=== PATIENT | female | born 1995 | race Caucasian/White ===

== ENCOUNTER 2016-10-18 13:48 | Emergency (ER) | payer BC, OTHER ==
[~2016-10-18] VITALS: Ht 160 cm; Wt 95.2 kg
[2016-10-18 13:49] VITALS: Ht 160 cm; Wt 95.2 kg
[2016-10-18] MEDS ORDERED: OMEP20TA PO (15:03)
[2016-10-18 15:19] LABS: URINE APPEARANCE CLOUDY (CLEAR); URINE COLOR DK YELLOW; URINE EPITHELIAL CELL AUTO >30 /lpf (0-5); URINE NITRITE NEG (NEG); URINE PH 5.5 (4.5-7.5); URINE SPECIFIC GRAVITY 1.027 (1.000-1.030); UROBILINOGEN NEG (NEG); ZZUR CULT IF INDIC CLEAN CATCH YES
--- NOTE | 2016-10-18 15:22 | EMERGENCY ROOM VISIT NOTE ---
History Report prepared by Beatrice: Sherice Vega Under the Supervision of: Dr. Aisha Aguillon M.D. First contact with patient: 14:07 Chief Complaint: MENTAL HEALTH EVALUATION Stated Complaint: PSYCHIATRIC PROBLEMS History of Present Illness The patient is a 21 year old female who presents to the Emergency Room for a mental health evaluation. Per family the patient had mental health issues about 1.5-2 years ago. Her mother had a brain aneurysm and was at [facility]. The patient worked in [employer] at [place] at that time. She became very aware of people talking and thought that everyone was talking about her even though they were not. She became very concerned about this. Sister states that a few months after her mother's aneurysm the patient was sent to clean the same room that she had been in. That made her anxiety and paranoia worse. The patient had a "breakdown" after that incident. She was admitted to [facility] for 9 weeks about 1.5 years ago. Family states that she had been doing well since she was discharged. She was taking her medications and following-up with a psychiatrist. About 2-3 months ago she stopped taking the medications and going to see her psychiatrist because she was doing well. Family states that the patient was doing well and was not having any further issues until 4 days ago. Four days ago she watched "13 Reasons Why" with her fiance. Father states that the show scared her. The patient states that she started thinking that she had done something to make someone want to harm themselves, and that made her want to harm herself. She reports that over the past 4 days she has been thinking about hurting herself. The patient states that she is also "worrying again." She is concerned that everyone is going to leave her and not come back. She states that her family has never left her alone before. She also constantly thinks that people are talking about her when they are on the telephone or when doctors in the hospital are being paged overhead. She thinks that all of the pages are in regards to her. Father states that the patient recently started a new job at [employer] and has been working 16 hour days. She has not been sleeping much over the past 4 days. He states that she has been up every hour. She tried taking Trazodone to help her sleep, but it did not work. The patient denies any chance of . She is not currently taking any OCP. Source of History: patient, parent (father), family (sister) Onset: [employer] Position: other (mental health) Quality: other (anxiety) Timing: worsening Modifying Factors (Worsening): other (watching "13 Reasons Why") Note: Pt denies chance of . Review of Systems See HPI for pertinent positives & negatives. A total of 10 systems reviewed and were otherwise negative. Past Medical & Surgical Medical Problems: (1) Anxiety Family History FH: brain aneurysm Social History Smoking Status: Former Smoker Marital Status: in relationship Housing Status: lives with family Occupation Status: employed Current/Historical Medications Scheduled Omeprazole (Omeprazole), 1 TAB PO DAILY Allergies Coded Allergies: Adhesives (Unverified Allergy, Mild, rash, 10/18/16) Physical Exam Vital Signs Date Time Temp Pulse Resp B/P (MAP) Pulse Ox O2 Delivery O2 Flow Rate FiO2 10/18/16 21:16 95 18 126/83 97 Room Air 10/18/16 18:12 93 18 128/88 97 10/18/16 16:21 78 19 99/78 95 Room Air 10/18/16 13:49 36.9 93 16 143/94 100 Physical Exam Vital signs reviewed. General: Anxious-appearing young female, in no significant distress. HEENT: No scleral icterus, PERRLA, neck supple. Atraumatic. Cardiovascular: Regular rate and rhythm, no extra sounds. Pulmonary: Clear to auscultation bilaterally, normal work of breathing. Abdomen: Soft, nontender, nondistended, positive bowel sounds. Musculoskeletal: Atraumatic, no peripheral edema. Neurologic: Patient awake alert and oriented x 3, full strength in all 4 extremities. Cranial nerves 2 through 12 grossly intact. Skin: Warm, dry, no rash Psych: Passive SI, negative HI, positive paranoid thinking. Medical Decision & Procedures ER Provider Diagnostic Interpretation: Radiology results as stated below per my review and radiologist interpretation: HEAD WITHOUT CONTRAST (CT) CT DOSE: 537.48 mGy.cm HISTORY: Trauma. Mental status change. ARAUJO, fall TECHNIQUE: Multiaxial CT images of the head were performed without the use of intravenous contrast. A dose lowering technique was utilized adhering to the principles of ALARA. Comparison: None. Findings: The paranasal sinuses and mastoid air cells are clear. The calvarium and skull base are intact. The ventricles and sulci are within normal limits. There is no mass, hematoma, midline shift, or acute infarct. Impression: No acute intracranial abnormality. The above report was generated using voice recognition software. It may contain grammatical, syntax or spelling errors. Electronically signed by: Papo Cao M.D. 10/18/2016 7:14 PM Dictated Date/Time: 10/18/2016 7:13 PM Laboratory Results 10/18/16 15:05 Red Blood Count 4.39, Mean Corpuscular Volume 87.2, Mean Corpuscular Hemoglobin 31.2, Mean Corpuscular Hemoglobin Concent 35.8, Mean Platelet Volume 10.4, Neutrophils (%) (Auto) 74.0, Lymphocytes (%) (Auto) 19.6, Monocytes (%) (Auto) 5.9, Eosinophils (%) (Auto) 0.1, Basophils (%) (Auto) 0.2, Neutrophils # (Auto) 7.74, Lymphocytes # (Auto) 2.05, Monocytes # (Auto) 0.62, Eosinophils # (Auto) 0.01, Basophils # (Auto) 0.02 10/18/16 15:05 Test 10/18/16 14:17 10/18/16 15:05 10/18/16 16:40 Urine Color DK YELLOW Urine Appearance CLOUDY (CLEAR) Urine pH 5.5 (4.5-7.5) Urine Specific [place] 1.027 (1.000-1.030) Urine Protein TRACE (NEG) Urine Glucose (UA) NEG (NEG) Urine Ketones 4+ (NEG) Urine Occult Blood TRACE (NEG) Urine Nitrite NEG (NEG) Urine Bilirubin NEG (NEG) Urine Urobilinogen NEG (NEG) Urine Leukocyte Esterase NEG (NEG) Urine WBC (Auto) 1-5 /hpf (0-5) Urine RBC (Auto) 0-4 /hpf (0-4) Urine Hyaline Casts (Auto) 5-10 /lpf (0-5) Urine Epithelial Cells (Auto) >30 /lpf (0-5) Urine Bacteria (Auto) 3+ (NEG) Urine Test NEG (NEG) White Blood Count 10.46 K/uL (4.8-10.8) Red Blood Count 4.39 M/uL (4.2-5.4) Hemoglobin 13.7 g/dL (12.0-16.0) Hematocrit 38.3 % (37-47) Mean Corpuscular Volume 87.2 fL (80-100) Mean Corpuscular Hemoglobin 31.2 pg (25-34) Mean Corpuscular Hemoglobin Concent 35.8 g/dl (32-36) Platelet Count 303 K/uL (130-400) Mean Platelet Volume 10.4 fL (7.4-10.4) Neutrophils (%) (Auto) 74.0 % Lymphocytes (%) (Auto) 19.6 % Monocytes (%) (Auto) 5.9 % Eosinophils (%) (Auto) 0.1 % Basophils (%) (Auto) 0.2 % Neutrophils # (Auto) 7.74 K/uL (1.4-6.5) Lymphocytes # (Auto) 2.05 K/uL (1.2-3.4) Monocytes # (Auto) 0.62 K/uL (0.11-0.59) Eosinophils # (Auto) 0.01 K/uL (0-0.5) Basophils # (Auto) 0.02 K/uL (0-0.2) RDW Standard Deviation 41.0 fL (36.4-46.3) RDW Coefficient of Variation 12.7 % (11.5-14.5) Immature Granulocyte % (Auto) 0.2 % Immature Granulocyte # (Auto) 0.02 K/uL (0.00-0.02) Anion Gap 12.0 mmol/L (3-11) Est Creatinine Clear Calc Drug Dose 126.3 ml/min Estimated GFR () 128.1 Estimated GFR (Non- 110.6 BUN/Creatinine Ratio 10.9 (10-20) Calcium Level 9.5 mg/dl (8.5-10.1) Total Bilirubin 0.9 mg/dl (0.2-1) Direct Bilirubin 0.2 mg/dl (0-0.2) Aspartate Amino Transf (AST/SGOT) 15 U/L (15-37) Alanine Aminotransferase (ALT/SGPT) 30 U/L (12-78) Alkaline Phosphatase 101 U/L (45-117) Total Protein 8.3 gm/dl (6.4-8.2) Albumin 3.9 gm/dl (3.4-5.0) Thyroid Stimulating Hormone (TSH) 1.170 uIu/ml (0.300-4.500) Salicylates Level < 1.7 mg/dl (2.8-20) Acetaminophen Level < 2 ug/ml (10-30) Ethyl Alcohol mg/dL < 3.0 mg/dl (0-3) Urine Opiates Screen NEG (NEG) Urine Methadone, Qualitative NEG (NEG) Urine Barbiturates NEG (NEG) Urine Phencyclidine (PCP) Level NEG (NEG) Ur Amphetamine/Methamphetamine NEG (NEG) MDMA (Ecstasy) Screen NEG (NEG) Urine Benzodiazepines Screen NEG (NEG) Urine Cocaine Metabolite NEG (NEG) Urine Marijuana (THC) NEG (NEG) Laboratory results per my review. Medications Administered Medications (Trade) Dose Ordered Sig/Lee Route Start Time Stop Time Status Last Admin Dose Admin Hydroxyzine HCl (Vistaril Tab) 25 mg NOW STAT PO 10/18/16 16:18 10/18/16 16:19 DC 10/18/16 16:26 25 MG Lorazepam (Ativan Tab) 1 mg NOW STAT SL 10/18/16 21:08 10/18/16 21:09 DC 10/18/16 21:13 1 MG ED Course 1420: Past medical records reviewed. The patient was evaluated in room A7. A complete history and physical examination was performed. 1617: At this time I spoke with the psychiatric liaison regarding the patient's treatment plan. 1618: Vistaril tab 25 mg PO 1830: [facility] is requesting a CT scan of the head. 2108: Lorazepam 1 mg SL 2130: The patient has been accepted to [facility] for further management. Medical Decision Differential diagnosis: Etiologies such as mood disorder, infection, hypoglycemia, electrolyte abnormalities, cardiac sources, intracerebral event, toxicologic, neurologic, as well as others were entertained. This patient was medically cleared. She appears to be paranoid with significant anxiety. She does have some passive suicidal thoughts. Patient was accepted at the [facility] for inpatient psychiatric treatment on a voluntary basis. She did receive a dose of Vistaril in the emergency department. She did require dose of Ativan prior to transport. Secure transportation arrangements were made. Medication Reconcilliation Current Medication List: was personally reviewed by me Blood Pressure Screening Patient's blood pressure: Normal blood pressure Impression Primary Impression: Paranoia Additional Impression: Suicidal ideation Scribe Attestation The scribe's documentation has been prepared under my direction and personally reviewed by me in its entirety. I confirm that the note above accurately reflects all work, treatment, procedures, and medical decision making performed by me. Departure Information Dispostion Transfer Acute Care Facility Referrals No Doctor, Assigned (PCP) Patient Instructions My [facility] Problem Qualifiers
[2016-10-18 15:23] LABS: BASO % 0.2 %; BASO ABS # 0.02 K/uL (0-0.2); COMPLETE YES; EOS % 0.1 %; HEMATOCRIT 38.3 % (37-47); IG% 0.2 %; LYMPH % 19.6 %; LYMPH ABS # 2.05 K/uL (1.2-3.4); MEAN CELL VOLUME 87.2 fL (80-100); MEAN CORPUSCULAR HEMOGLOBIN 31.2 pg (25-34); MEAN CORPUSCULAR HGB CONC 35.8 g/dl (32-36); MEAN PLATELET VOLUME 10.4 fL (7.4-10.4); MONO % 5.9 %; PLATELET COUNT 303 K/uL (130-400); RED BLOOD COUNT 4.39 M/uL (4.2-5.4); WHITE BLOOD COUNT 10.46 K/uL (4.8-10.8)
[2016-10-18 15:25] LABS: MANUAL MICROSCOPIC REQUIRED? NO; REVIEW REQ? YES
[2016-10-18 15:26] LABS: URINE BILIRUBIN NEG (NEG)
[2016-10-18 15:40] LABS: BUN/CREATININE RATIO 10.9 (10-20); CALCIUM 9.5 mg/dl (8.5-10.1); CREATININE 0.76 mg/dl (0.60-1.20); POTASSIUM 3.4 mmol/L (3.5-5.1)
[2016-10-18 15:51] LABS: THYROID STIMULATING HORMONE 1.17 uIu/ml (0.300-4.500)
[2016-10-18 15:55] LABS: ACETAMINOPHEN < 2 ug/ml (10-30)
[2016-10-18] MEDS ORDERED: hydrOXYzine HCL 25 MG TAB PO STA (16:18)
[2016-10-18 16:20] LABS: BENZODIAZEPINE, URINE NEG (NEG); COCAINE,URINE NEG (NEG); PHENCYCLIDINE, URINE NEG (NEG)
[2016-10-18 17:22] LABS: BENZODIAZEPINE, URINE NEG (NEG); COCAINE,URINE NEG (NEG); PHENCYCLIDINE, URINE NEG (NEG)
--- NOTE | 2016-10-18 19:15 | DIAGNOSTIC IMAGING REPORT ---
HEAD WITHOUT CONTRAST (CT) CT DOSE: 537.48 mGy.cm HISTORY: Trauma. Mental status change. ARAUJO, fall TECHNIQUE: Multiaxial CT images of the head were performed without the use of intravenous contrast. A dose lowering technique was utilized adhering to the principles of ALARA. Comparison: None. Findings: The paranasal sinuses and mastoid air cells are clear. The calvarium and skull base are intact. The ventricles and sulci are within normal limits. There is no mass, hematoma, midline shift, or acute infarct. Impression: No acute intracranial abnormality. The above report was generated using voice recognition software. It may contain grammatical, syntax or spelling errors. Electronically signed by: Papo Cao M.D. 10/18/2016 7:14 PM Dictated Date/Time: 10/18/2016 7:13 PM
[2016-10-18] MEDS ORDERED: LORAZEPAM 1 MG TAB SL STA (21:08)
[2016-10-18 23:27] VITALS: BP 134/93; PULSE 96; O2SAT 99
[2016-10-24 17:34] LABS: SYNTHETIC CANNABINOIDS QL URIN NEGATIVE (Negative)
== END 2016-10-18 23:28 ==
LOC: C.EDB 13:50 → C.EDA 23:28
DX: F22 Delusional disorders (principal); R45.851 Suicidal ideations; F41.9 Anxiety disorder, unspecified; Z87.891 Personal history of nicotine dependence; Z79.899 Other long term (current) drug therapy